=== PATIENT | male | born 1990 | race Caucasian/White ===

== ENCOUNTER 2017-02-22 15:23 | Emergency (ER) | payer OTHER ==
[2017-02-22 15:50] VITALS: BP 152/77; PULSE 71; TEMP 98; BMI 23.5
--- NOTE | 2017-02-22 17:28 | PDOC ---
History of Present Illness - General Chief Complaint: Pain Stated Complaint: CHEST PAIN, CHECK UP History Source: Patient Exam Limitations: No Limitations - History of Present Illness Initial Comments: 02/22/17 17:25 26 yr male c/o on and off chest pain for one year.. Pt states pain comes and goes can last all day or a few hours relieved on own. Pt does not have pain now. no shortness of breath no fever or chills no cough . Pt has no medical history or allergies. Timing/Duration: other (1 year) Past History - Past Medical History Allergies/Adverse Reactions: Allergies Allergy/AdvReac Type Severity Reaction Status Date / Time No Known Allergies Allergy Verified 02/22/17 15:48 Home Medications: Ambulatory Orders NK [No Known Home Medication] 02/22/17 Other medical history: DENIES - Surgical History Other Surgical History: 02/22/17 17:26 denies - Family Disease History Comment:: 02/22/17 17:26 denies - Psycho/Social/Smoking Cessation Hx Anxiety: No Suicidal Ideation: No Smoking History: Never smoked Have you smoked in the past 12 months: No Information on smoking cessation initiated: No Hx Alcohol Use: No Substance Use Type: None Review of Systems - Review of Systems Able to Perform ROS?: Yes Is the patient limited Persian proficient: No Constitutional: No: Symptoms Reported HEENTM: No: Symptoms Reported Respiratory: No: Symptoms reported Cardiac (ROS): Yes: Symptoms Reported, See HPI, Chest Pain *Physical Exam - Vital Signs Last Vital Signs Temp Pulse Resp BP Pulse Ox 98 F 71 18 152/77 98 02/22/17 15:45 02/22/17 15:45 02/22/17 15:45 02/22/17 15:45 02/22/17 15:45 - Physical Exam General Appearance: Yes: Nourished, Appropriately Dressed HEENT: positive: EOMI, VINH, Normal ENT Inspection, TMs Normal, Pharynx Normal Neck: positive: Supple Respiratory/Chest: positive: Lungs Clear, Normal Breath Sounds Cardiovascular: positive: Regular Rhythm, Regular Rate Gastrointestinal/Abdominal: positive: Normal Bowel Sounds, Soft Musculoskeletal: positive: Normal Inspection Extremity: positive: Normal Capillary Refill, Normal Inspection, Normal Range of Motion Integumentary: positive: Normal Color, Dry, Warm Neurologic: positive: Fully Oriented, Alert, Normal Mood/Affect, Normal Response , Motor Strength 5/5 Heart Score/ECG Review - History History: Slightly suspicious - Electrocardiogram EKG: Normal - Age Age: </= 45 - Risk Factors Risk Factors Heart Score: No Hx Hypercholesterolemia, No Hx Hypertension, No Hx Diabetes, No Smoking History, No Positive family hx of cardiac disease, No Hx Obesity - ECG Impressions Comment:: 02/22/17 17:43 EKG NSR with non specific T wave abnormality no STEMI EKG done by YARA Calderon and signed by ER attending 02/22/17 22:08 ED Treatment Course - RADIOLOGY Radiology Studies Ordered: Category Date Time Status CHEST PA & LAT [RAD] Stat Radiology 02/22/17 17:23 Ordered Medical Decision Making - Medical Decision Making 02/22/17 17:27 cc: chest pain intermittent for one year no pain now, has not had pain in 2 days no fever, cough or shortness of breath pt works in sales in a furniture store denies drugs, ETOH or smoking denies any anxiety or stress will do EKG and CXR 02/22/17 17:44 EKG done NSR with non specific changes no STEMI or st elevation 02/22/17 17:56 will dc home with strict instructions for follow up with claims investigator pt agrees with the follow up plan, all questions asked and answered at discharge. pt stable again has no complaint of pain during this ER visit. 02/22/17 17:58 02/22/17 22:09 *DC/Admit/Observation/Transfer Diagnosis at time of Disposition: Chest pain Qualifiers: Chest pain type: unspecified Qualified Code(s): R07.9 - Chest pain, unspecified - Discharge Dispostion Disposition: HOME Condition at time of disposition: Stable - Referrals Referrals: Angel Da Silva MD [Primary Care Provider] - Villa Stevens MD [Staff Physician] - - Patient Instructions Additional Instructions: please follow with the claims investigator call Friday to make appointment take motrin 600mg every 6hrs as needed for pain Return to the ER for any worsening symptoms
--- NOTE | 2017-02-23 14:24 | EKG ---
Test Reason : Blood Pressure : / mmHG Vent. Rate : 063 BPM Atrial Rate : 063 BPM P-R Int : 148 ms QRS Dur : 094 ms QT Int : 386 ms P-R-T Axes : 062 052 004 degrees QTc Int : 395 ms NORMAL SINUS RHYTHM NONSPECIFIC T WAVE ABNORMALITY ABNORMAL ECG NO PREVIOUS ECGS AVAILABLE CLINICAL CORRELATION IS RECOMMENDED Confirmed by MARGIE SALGADO, NIMESH ([id number]) on 02/23/2017 2:24:27 PM Referred By: JESSA Confirmed By:NIMESH HANSON MD
== END 2017-02-22 21:36 | disposition home or self-care (01) ==
LOC: JER 15:23 → JERFT 15:23
DX: R07.9 Chest pain, unspecified (principal)
CPT/HCPCS: 71020-TC; 93005; 93010; 99281-25

== ENCOUNTER 2018-12-24 14:52 | Emergency (ER) | payer OTHER ==
[2018-12-24 15:01] VITALS: BP 131/72; PULSE 71; TEMP 98.8; BMI 23.6
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
== END 2018-12-24 17:29 | disposition home or self-care (01) ==
LOC: JERFT 14:52
DX: S63.502A Unspecified sprain of left wrist, initial encounter (principal); V49.49XA Driver injured in collision with other motor vehicles in traffic accident, initial encounter; Y92.488 Other paved roadways as the place of occurrence of the external cause; Y93.89 Activity, other specified; Y99.8 Other external cause status
CPT/HCPCS: 73110-TC-LR-FY; 73130-TC-LT-FY; 99281-25